=== PATIENT | female | born 1975 ===

== ENCOUNTER → 2018-05-30 21:35 | Outpatient (REF) | payer OTHER, SELFPAY ==
[2018-05-30 22:18] LABS: Carbon Dioxide 29 mmol/L (22-32); Chloride 100 mmol/L (98-107); HEMOLYSIS 23 (0-50); Magnesium 2.3 mg/dL (1.6-2.3); Potassium 4.2 mmol/L (3.4-5.1); Sodium 141 mmol/L (137-145)
[2018-05-30 22:28] LABS: Hematocrit 40.9 % (36-46); Hemoglobin 14.5 g/dL (12.0-16.0); Mean Corpuscular HGB Conc 35.4 % (30-36); Mean Corpuscular Hemoglobin 32.4 PG (26-34); Mean Corpuscular Volume 91.4 fL (80-100); Platelet Count 220 X10^3/uL (150-400); Red Blood Cell Count 4.47 X10^6/uL (4.0-5.2); White Blood Cell Count 6.5 X10^3/uL (4.5-11.0)
== END ==
LOC: LAB 21:35
PROVIDERS: Visit Provider Naturopath
DX: R79.89 Other specified abnormal findings of blood chemistry (principal); E87.1 Hypo-osmolality and hyponatremia; E27.8 Other specified disorders of adrenal gland; E27.49 Other adrenocortical insufficiency
CPT/HCPCS: 80051; 82088; 83735; 85027